=== PATIENT | female | born 1935 | race Caucasian/White ===

== ENCOUNTER 2023-02-24 10:42 | Emergency (ER) | payer MEDICARE, SELFPAY ==
[2023-02-24 10:46] VITALS: BP 164/82; PULSE 59; RESP 20; TEMP 36.6; O2SAT 97; BMI 30.4
--- NOTE | 2023-02-24 10:56 | ED.EYEPROB1 ---
HPI - Eye Problem General Chief complaint: Eye Problems Stated complaint: SWELLING IN BOTH EYES Time Seen by Provider: 02/24/23 10:56 Source: patient and family Mode of arrival: walk-in Limitations: no limitations History of Present Illness HPI Narrative: Should persist emergency department complaining of facial swelling. Patient states she started having itchiness and ALLERGIES to her eyes bilaterally. She has been itching at them and started getting red. She went to the urgent care and was given ketorolac drops. And has been using the drops and taking Benadryl has not had any relief. She states she's noted the erythema, and swelling become worse. He called her doctor and were advised, therefore evaluation. Patient denies any blurred vision, or drainage. She denies any headache, fever, chills, speech difficulties, paresthesias, or weakness. She denies any nausea, vomiting, diarrhea, constipation, abdominal pain. She denies any chest pain, shortness of breath. Related Data Home Medications Medication Instructions Recorded Confirmed amlodipine 2.5 mg tablet 2.5 mg PO DAILY 02/24/23 02/24/23 apixaban 5 mg tablet (Eliquis) 5 mg PO DAILY 02/24/23 02/24/23 cyanocobalamin (vitamin B-12) 1,000 mcg PO DAILY 02/24/23 02/24/23 1,000 mcg capsule metoprolol tartrate 50 mg tablet 25 mg PO Q12H 02/24/23 02/24/23 omeprazole 20 mg capsule,delayed 40 mg PO DAILY 02/24/23 02/24/23 release pravastatin 40 mg tablet 40 mg PO DAILY 02/24/23 02/24/23 rivaroxaban 20 mg tablet (Xarelto) 20 mg PO Q24H 02/24/23 02/24/23 Previous Rx's Medication Instructions Recorded cephalexin 500 mg capsule 500 mg PO Q8H 7 days #21 caps 02/24/23 sulfamethoxazole 800 1 tab PO BID 7 days #14 tabs 02/24/23 mg-trimethoprim 160 mg tablet (Bactrim DS) Allergies Allergy/AdvReac Type Severity Reaction Status Date / Time No Known Drug Allergies Allergy Verified 02/24/23 10:49 Review of Systems ROS Status of ROS 10 or more systems reviewed and unremarkable except as noted in history and below Exam Narrative Exam Narrative: Nurses notes and vital signs reviewed and patient is not hypoxic. General: Nontoxic, Well-appearing and in no apparent distress. Skin: Warm, dry, no pallor noted. Head: Normocephalic, atraumatic. Neck: Supple, non-tender. Eye: Pupils are equal, round and EOMI. No scleral icterus. Conjunctival injection. There is bilateral. Orbital erythema and excoriation. There is no exudate. No signs of postseptal cellulitis. Ears, Nose, Mouth, and Throat: TM clear, no posterior oropharynx erythema or nasal mucosal hypertrophy, uvula is mid-line Oral mucosa is moist Cardiovascular: Regular Rate and Rhythm without murmur, gallop or rub. Respiratory: No accessory muscle use or respiratory distress. Lungs are clear to auscultation, no wheezing, rales or rhonchi Chest Wall: no tenderness Back: No midline thoracic or lumbar vertebral tenderness. No CVA tenderness Musculoskeletal: normal ROM, no calf or popliteal tenderness, no lower extremity edema/swelling GI: Abdomen is soft, non-distended. Normal bowel sounds. No masses appreciated. No tenderness to palpation. No rebound, guarding, or rigidity noted. Neurological: A&O x4. No cranial nerve dysfunction observed. No truncal ataxia. Moves all extremities. Sensation intact. Psychiatric: Cooperative and interactive. Normal mood and affect. Constitutional Vital Signs, click to edit/add: Last Vital Signs Temp 98 F 02/24/23 10:46 Pulse 59 L 02/24/23 10:46 Resp 02/24/23 10:46 BP 164/82 H 02/24/23 10:46 Pulse Ox 97 02/24/23 10:46 O2 Del Method Room Air 02/24/23 10:46 Course Vital Signs Vital signs: Vital Signs Temperature 98 F 02/24/23 10:46 Pulse Rate 59 L 02/24/23 10:46 Respiratory Rate 02/24/23 10:46 Blood Pressure 164/82 H 02/24/23 10:46 Pulse Oximetry 97 02/24/23 10:46 Oxygen Delivery Method Room Air 02/24/23 10:46 Temperature 98 F 02/24/23 10:46 Pulse Rate 59 L 02/24/23 10:46 Respiratory Rate 02/24/23 10:46 Blood Pressure 164/82 H 02/24/23 10:46 Pulse Oximetry 97 02/24/23 10:46 Oxygen Delivery Method Room Air 02/24/23 10:46 MDM - Eye Problem MDM Narrative Medical decision making narrative: She has history of physical exam is consistent with ALLERGIC reaction and dermatitis probably complicated by infection. The patient will be placed on antibiotics, steroids, and advised to continue taking Benadryl. Vision is nontoxic, and stable for outpatient follow-up and treatment. At this time the patient is without objective evidence of an acute process requiring hospitalization or inpatient management. The patient has remained hemodynamically stable. No additional indication for emergent studies at this time. I answered all questions. Discussed discharge instructions including standard anticipatory guidance and what should prompt a return to the emergency department, including if they get worse are not getting better or develops any new or concerning symptoms. I've given them specific time frame in which to follow-up, and who to follow-up with. The patient demonstrates understanding. Patient is nontoxic and stable for discharge with outpatient follow-up. This note was created with the assistance of a speech recognition program. Although the intention is to generate documents that actually reflects the content of the visit, no guarantees can be provided that every mistake has been identified and corrected by editing. Discharge Plan Discharge Chief Complaint: Eye Problems Clinical Impression: Periorbital cellulitis Patient Disposition: Home, Self-Care Time of Disposition Decision: 11:42 Condition: Good Mode of Transportation: Private Vehicle Prescriptions / Home Meds: New cephalexin 500 mg capsule 500 mg PO Q8H 7 Days Qty: 21 0RF sulfamethoxazole-trimethoprim [Bactrim DS] 800-160 mg tablet 1 tab PO BID 7 Days Qty: 14 0RF No Action amlodipine 2.5 mg tablet 2.5 mg PO DAILY Eliquis 5 mg tablet 5 mg PO DAILY cyanocobalamin (vitamin B-12) 1,000 mcg capsule 1,000 mcg PO DAILY metoprolol tartrate 50 mg tablet 25 mg PO Q12H omeprazole 20 mg capsule,delayed release(DR/EC) 40 mg PO DAILY pravastatin 40 mg tablet 40 mg PO DAILY Xarelto 20 mg tablet 20 mg PO Q24H Instructions: Periorbital Cellulitis (ED) Stand Alone Forms: Portal Instructions Referrals: MACKENZIE HOUSTON [Primary Care Provider] - 1 week Discharge Date/Time: 02/24/23 12:18
--- NOTE | 2023-02-24 11:01 | PC.NURSE ---
Visual acuity obtained: Bilateral uncorrected 20/40 left uncorrected 20/32 right uncorrected 20/30. patient c/o bilateral eye swelling that began a week ago. went to urgent care and was told it was allergies and prescribed eye drops. patient reports rash and swelling increased after this, patient admits to rubbing eyes frequently. butterfly style red rash/swelling to eye area. patient reports her vision is only blurry due to the swelling around her eyes.
[2023-02-24] MEDS: DEXAMETHASONE SODIUM PHOSPHATE 10 MG/ML VIAL INJ (11:59)
== END 2023-02-24 12:18 | disposition home or self-care (01) ==
PROVIDERS: Emergency Provider Emergency Medicine; PCP Family Medicine
DX: L03.213 Periorbital cellulitis (principal); Z79.01 Long term (current) use of anticoagulants; Z79.899 Other long term (current) drug therapy
CPT/HCPCS: 96372; 96374; 99284; J1100

== ENCOUNTER 2023-05-23 12:06 | Outpatient (OUT) | payer MEDICARE, SELFPAY ==
[2023-05-23 12:48] LABS: Basophils Absolute Auto 0.1 10^3/uL (0.0-0.1); Basophils Percent Auto 1.4 % (0.2-2.0); Eosinophils Absolute Auto 0.2 10^3/uL (0.0-0.7); Eosinophils Percent Auto 2.3 % (0.9-7.0); Hematocrit 42.1 % (36.0-48.0); Hemoglobin 13.4 g/dL (12.0-16.0); Immature Granulocytes Abs Auto 0.03 10^3/uL (0.00-0.03); Immature Granulocytes Pct Auto 0.4 % (0.0-0.5); Lymphocytes Absolute Auto 1.4 10^3/uL (1.2-3.8); Lymphocytes Percent Auto 18.3 % (20.5-60.0); Mean Corpuscular HGB Conc 31.8 g/dL (29.9-35.2); Mean Corpuscular Volume 94.4 fL (81.0-99.0); Mean Platelet Volume 10.2 fL (9.5-13.5); Monocytes Absolute Auto 0.7 10^3/uL (0.3-0.8); Monocytes Percent Auto 8.5 % (1.7-12.0); Neutrophils Absolute Auto 5.3 10^3/uL (1.4-6.5); Neutrophils Percent Auto 69.1 % (43.0-75.0); Platelet Count 297 10^3/uL (150-450); Red Blood Count 4.46 10^6/uL (4.20-5.40); Red Cell Distribution Width 13.3 % (11.0-15.0); White Blood Count 7.7 10^3/uL (4.0-11.0)
[2023-05-23 12:58] LABS: C Reactive Protein <0.2 mg/dL (<=1.0); Creatine Kinase 67 U/L (26-192); Estimated GFR (African America 57 (>=60); Estimated GFR (Non-African Ame 47 (>=60)
[2023-05-23 13:43] LABS: Erythrocyte Sedimentation Rate 50 mm/hr (<=30)
[2023-05-24 04:07] LABS: Complement C3, Serum 115 mg/dL (82-167); Complement C4, Serum 15 mg/dL (12-38)
[2023-05-24 14:09] LABS: Anti-dsDNA Antibodies 3 IU/mL (0-9); Sjogren's Anti-SS-A <0.2 AI (0.0-0.9); Sjogren's Anti-SS-B 0.3 AI (0.0-0.9)
[2023-05-25 09:10] LABS: Antinuclear Antibodies, IFA Negative (.)
== END 2023-05-23 12:07 | disposition home or self-care (01) ==
LOC: LAB 12:08
PROVIDERS: PCP Family Medicine; Visit Provider Internal Medicine Rheumatology
DX: R21 Rash and other nonspecific skin eruption (principal); R76.0 Raised antibody titer
CPT/HCPCS: 36415; 81001; 82550; 82565; 83516; 85025; 85652; 86038; 86140; 86160; 86235

== ENCOUNTER 2023-05-24 12:03 | Outpatient (REF) | payer MEDICARE, SELFPAY ==
[2023-05-24 13:11] LABS: Bilirubin Urine NEGATIVE (NEGATIVE); Blood Urine SMALL (NEGATIVE); Clarity Urine CLEAR (CLEAR); Color Urine LT. YELLOW (YELLOW); Glucose Urine UA NEGATIVE (NEGATIVE); Ketones Urine NEGATIVE (NEGATIVE); Leukocyte Esterase Urine NEGATIVE (NEGATIVE); Nitrite Urine NEGATIVE (NEGATIVE); Protein Urine NEGATIVE (NEG/TRACE); Urobilinogen Urine 0.2 EU/dL (0.2-1.0)
[2023-05-24 13:42] LABS: Bacteria Urine NONE SEEN #/HPF (NONE SEEN); Mucus Urine NONE SEEN (NONE SEEN); RBC Urine NONE SEEN #/HPF (0-2); Squamous Epithelial Cell Urine RARE #/LPF (NONE/RARE); WBC Urine NONE SEEN #/HPF (NONE SEEN)
== END 2023-05-24 12:04 | disposition home or self-care (01) ==
LOC: LAB 12:03
PROVIDERS: PCP Family Medicine; Visit Provider Internal Medicine Rheumatology
DX: R21 Rash and other nonspecific skin eruption (principal); R76.0 Raised antibody titer
CPT/HCPCS: 81001

== ENCOUNTER 2023-07-19 11:55 | Outpatient (OUT) | payer MEDICARE, SELFPAY ==
[2023-07-19 12:32] LABS: Erythrocyte Sedimentation Rate 23 mm/hr (<=30)
[2023-07-19 13:26] LABS: C Reactive Protein <0.50 mg/dL (<=0.50)
== END 2023-07-19 11:56 | disposition home or self-care (01) ==
LOC: LAB 11:56
PROVIDERS: PCP Family Medicine; Visit Provider Internal Medicine Rheumatology
DX: R70.0 Elevated erythrocyte sedimentation rate (principal)
CPT/HCPCS: 36415; 85652; 86140